=== PATIENT | male | born 1940 | race Caucasian/White ===

== ENCOUNTER 2021-10-26 12:52 | Emergency (ER) | payer MEDICARE, SELFPAY ==
[2021-10-26 12:58] VITALS: BP 168/99; PULSE 74; RESP 16; TEMP 36.5; O2SAT 99
--- NOTE | 2021-10-26 13:19 | ED.EYEPROB ---
HPI - Eye Problem General Chief complaint: Eye Problems Stated complaint: EYE REDNESS Time Seen by Provider: 10/26/21 13:16 Source: patient Mode of arrival: ambulatory Limitations: no limitations History of Present Illness HPI Narrative: Patient presents today with redness to his left eye x2 days. Denies injury, trauma, foreign body sensation, vision changes. States he has been coughing and sneezing recently. Denies any aspirin or blood thinner use. Related Data Home Medications Medication Instructions Recorded Confirmed ferrous sulfate 325 mg (65 mg 325 mg PO DAILY 07/28/21 07/28/21 iron) tablet ferrous sulfate 325 mg (65 mg 325 mg PO DAILY 07/28/21 07/28/21 iron) tablet ibuprofen 200 mg capsule 200 mg PO .QD 07/28/21 07/28/21 multivitamin 1 tablet PO DAILY 07/28/21 07/28/21 Allergies Allergy/AdvReac Type Severity Reaction Status Date / Time No Known Allergies Allergy Verified 07/28/21 08:59 Review of Systems Review of Systems: CONSTITUTIONAL: Denies body aches, fever, chills, or sweats. EYES: Denies visual changes, redness, or discharge.+ Left eye redness ENT: Denies rhinorrhea, congestion, sore throat, or otalgia. CARDIOVASCULAR: Denies chest pain, palpitations, or edema. RESPIRATORY: Denies cough or dyspnea. GASTROINTESTINAL: Denies abdominal pain, nausea, vomiting, or diarrhea. GENITOURINARY: Denies dysuria or hematuria. SKIN: Denies rash, itching, or wounds. MUSCULOSKELETAL: Denies back pain, joint pain, or myalgia. NEUROLOGIC: Denies headache, numbness, tingling, or weakness. PSYCH: Denies depression or anxiety. [facility] Past Medical History Medical History Hypertension Pure hypercholesterolemia, unspecified Surgical History Surgical History History of right inguinal hernia repair Hx of left knee surgery Family History Family History Father Acute myocardial infarction Heart disease Mother Breast cancer Other Colon polyp Hypertension Social History Social History Smoking status: Never smoker Second hand tobacco smoke exposure: No Alcohol intake: current Drinks per week: 7 Substance use: never Substance use type: does not use Gender identity (if verbalized by the patient): Male Sexual Orientation (if Verbalized by the Patient): Straight or Heterosexual Spiritual care concerns: No Agree to blood products: Yes Comments At time of signature, I have reviewed and agree with nursing past medical, surgical, social and family history unless otherwise noted. Please see nursing chart for further information. There is no relevant family history pertinent to the presenting complaint Exam Narrative: GENERAL: Well-appearing, well-nourished, and in no acute distress. HEAD: Normocephalic, atraumatic. EYES: EOMI. PERRL. Left eye: Subconjunctival hemorrhage taking out most of the surface of the conjunctiva. ENT: Mucous membranes pink and moist. NECK: Normal AROM. CHEST: No respiratory distress. EXTREMITIES: Normal range of motion. No edema. SKIN: Warm, dry, no rash. Capillary refill normal. Normal skin turgor. NEURO: No focal deficits. Alert and oriented x3. Gait steady. PSYCH: Normal affect. No signs of depression or anxiety. Course Course Level of Care: Express Care Visit Vital Signs Vital signs: Vital Signs Temperature 97.7 F 10/26/21 12:58 Pulse Rate 74 10/26/21 12:58 Respiratory Rate 16 10/26/21 12:58 Blood Pressure 168/99 H 10/26/21 12:58 Pulse Oximetry 99 10/26/21 12:58 Temperature 97.7 F 10/26/21 12:58 Pulse Rate 74 10/26/21 12:58 Respiratory Rate 16 10/26/21 12:58 Blood Pressure 168/99 H 10/26/21 12:58 Pulse Oximetry 99 10/26/21 12:58 Reviewed. Pt has been inst
== END 2021-10-26 13:26 | disposition home or self-care (01) ==
PROVIDERS: Emergency Provider Nurse Practitioner; PCP Family Medicine Adolescent Medicine
DX: H11.32 Conjunctival hemorrhage, left eye (principal); I10 Essential (primary) hypertension; E78.00 Pure hypercholesterolemia, unspecified
CPT/HCPCS: 99212; G0463

== ENCOUNTER 2024-07-04 09:54 | Emergency (ER) | payer MEDICARE, SELFPAY ==
[2024-07-04 09:54] VITALS: PULSE 126; RESP 36
--- NOTE | 2024-07-04 10:13 | ED_ITS ---
HPI - General Adult General Chief complaint: Cardiac Arrest/CPR Stated complaint: cardiac arrest Time Seen by Provider: 07/04/24 10:02 History of Present Illness HPI narrative: Patient is an 84-year-old male who presents the ER in cardiac arrest. [place] when he was feeling short of breath and stated he need to stop and rest. He then collapsed. Bystander CPR started. EMS arrived and continued CPR and started ACLS protocol. Patient has been in [place] for the entirety of the resuscitation. He does have an i-gel in place. Related Data Home Medications ?Medication ?Instructions ?Recorded ?Confirmed ?Last Taken ?Type ibuprofen 200 mg capsule 200 mg PO .QD 07/28/21 02/04/24 Unknown History multivitamin 1 tablet PO DAILY 07/28/21 02/04/24 Unknown History gabapentin 300 mg capsule 300 mg PO DAILY 07/17/23 02/04/24 Unknown History Allergies Allergy/AdvReac Type Severity Reaction Status Date / Time No Known Allergies Allergy Verified 02/04/24 10:52 Review of Systems Review of Systems: ROS unobtainable: Yes unobtainable due to medical condition [facility] Past Medical History Medical History Hypertension Pure hypercholesterolemia, unspecified Surgical History Surgical History History of right inguinal hernia repair Hx of left knee surgery Family History Family History Father Acute myocardial infarction Heart disease Mother Breast cancer Other Colon polyp Hypertension Social History Social History (Updated 07/17/23 @ 09:16 by Bull Kang [facility]) Smoking status: Never smoker Second hand tobacco smoke exposure: No Alcohol intake: current Drinks per week: 7 Substance use: never Substance use type: does not use Do You Feel Safe in your Home?: Yes Lack of Transportation: No Lack of Food: Never True Current Housing: I Have Housing Concerned About Future Housing: No Difficulty Paying Gas/Electric Bills: No Difficulty Paying for Meds: No Currently Unemployed: No Education: Master's Degree or Higher Difficulty w/ Childcare or Family Care: No Living arrangements: with family Occupation/Education: retired Gender identity (if verbalized by the patient): Male Sexual Orientation (if Verbalized by the Patient): Straight or Heterosexual Spiritual care concerns: No Agree to blood products: Yes Exam Narrative: GENERAL: Unresponsive, well-nourished. HEAD: Normocephalic, atraumatic. EYES: Pupils fixed and mid dilated. ENT: Mucous membranes moist. CHEST: No spontaneous respirations. Clear with bagging. HEART: Pulseless. ABDOMEN: Soft, nondistended. EXTREMITIES: No deformity, no edema. SKIN: Warm, dry, no rash. NEURO: GCS 3, no gag. Course Course Emergency Course: 1010: The patient's daughter has arrived. I have spoken with her in the family room. Patient has received continuous CPR and has been intubated. Multiple rounds of epinephrine. He has received IV dextrose 50% for his blood sugar of 70. He also received IV sodium bicarb. With each pulse check patient was in pulseless electrical activity bedside ultrasound showed no cardiac activity. With daughter at the bedside patient was pronounced as having . 1014: Discussed with his PCP, Dr. Sanchez. He will fill out the certificate. Patient had approximately 45 minutes of CPR. Vital Signs Vital signs: Vital Signs Pulse Rate 126 H 07/04/24 09:54 Respiratory Rate 36 H 07/04/24 09:54 Pulse Rate 126 H 07/04/24 09:54 Respiratory Rate 36 H 07/04/24 09:54 Oxygen Delivery Bag Valve Mask 07/04/24 10:15 Medical Decision Making Vital Signs Vital Signs: Vital Signs Pulse Rate 126 H 07/04/24 09:54 Respiratory Rate 36 H 07/04/24 09:54 Pulse Rate 126 H 07/04/24 09:54 Respiratory Rate 36 H 07/04/24 09:54 Oxygen Delivery Bag Valve Mask 07/04/24 10:15 Discharge Plan Discharge Clinical Impression: Cardiac arrest Patient Disposition: Condition: Patient Language: Romanian Prescriptions: No Action gabapentin 300 mg capsule 300 mg PO DAILY ibuprofen 200 mg capsule 200 mg PO .QD multivitamin Tablet 1 tablet PO DAILY atorvastatin 20 mg tablet 20 mg PO DAILY Qty: 90 3RF lisinopril 20 mg tablet 20 mg PO DAILY Qty: 90 2RF Follow-up/Referrals: Everardo Nunes MD [Primary Care Provider] -
--- OUTSIDE RECORDS SUMMARY | 2024-07-04 10:40 | XMS_ITS | Referral Summary ---
Author Organization [facility] [place] [address] Address [address] [place] [id number] Care Team Providers Care Search And Rescue Officer Name Role Phone Everardo Nunes MD Primary Care Prov ider Allergies No known active allergies Medications atorvastatin (LIPITOR) 20 mg tablet Take 1 tablet (20 mg total) by mouth daily 06/07/2022 Active gabapentin (NEURONTIN) 300 mg capsule TAKE ONE CAPSULE BY MOUTH EVERY NIGHT 06/07/2022 Active lisinopriL (PRINIVIL,ZESTR IL) 20 mg tablet Take 1 tablet (20 mg total) by mouth daily 06/28/2022 Active cyclobenzaprine (FLEXERIL) 10 mg tablet Take 1 tablet (10 mg total) by mouth 3 (three) times a day as needed for muscle spasms 20 tablet 08/11/2022 Active methylPREDNISol one (MEDROL DOSEPACK) 4 mg Dosepack Take as directed on package 1 packet 08/11/2022 Active azithromycin (ZITHROMAX) 250 mg tablet Take 2 tabs (500 mg) by mouth today, than 1 tab (250 mg) daily for 4 days. 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 Gender Identity Not on file Sexual Orientation Not on file Last Filed Vital Signs Vital Sign Reading Time Taken Comments Blood Pressure 140/90 08/11/2022 9:52 AM CDT Pulse 73 08/11/2022 9:52 AM CDT Temperature 36.6 C (97.9 F) 08/11/2022 9:52 AM CDT Respiratory Rate 18 08/11/2022 9:52 AM CDT Oxygen Saturation 95% 08/11/2022 9:52 AM CDT Inhaled Oxygen Concentration - - Weight 74.8 kg (165 lb) 08/11/2022 9:52 AM CDT Height 172.7 cm (5' 8 ) 08/11/2022 9:52 AM CDT Body Mass Index 25.09 08/11/2022 9:52 AM CDT Plan of Treatment Not on file Insurance MEDICARE MEDICARE Care Teams Search And Rescue Officer Relationship Specialty Start Date End Date Everardo Nunes MD [address] [place] [address] PCP - General Family Medicine 08/11/22
--- OUTSIDE RECORDS SUMMARY | 2024-07-04 10:40 | XMS_ITS | Clinical Summary ---
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 Gender Identity Not on file Sexual Orientation Not on file Obstetrics History Last Filed Vital Signs Vital Sign Reading [...] 08/11/2022 9:52 AM CDT Plan of Treatment Health Maintenance Due Date Last Done Comments Depression Screening 1940 Fall Risk Assessment 1940 DTaP/Tdap/Td Vaccine (1 - Tdap) 1952 Hepatitis B Screening 1959 Well Visit 65+ 2006 Zoster Vaccine (2 of 3) 06/11/2013 04/16/2013 Covid-19 Vaccine (6 2023-2 5 season) 2024 02/27/2022, 09/01/2021, 03/07/2021, Additional history exists Influenza Vaccine (#1) 2024 , 02/25/2021, 01/26/2020, Additional history exists Pneumococcal vaccine 65+ Completed 03/07/2021, 02/12 Insurance [facility] MEDICARE [facility] MEDICARE Address: [facility] [id number] [place] [phone] [employer] MEDICARE Care Teams Fitter Hand Relationship Specialty Start Date End Date Everardo Nunes MD [address] [place] [address] PCP - General Family Medicine 08/11/22
== END 2024-07-04 11:37 | disposition expired ==
PROVIDERS: Emergency Provider Emergency Medicine; PCP Family Medicine Adolescent Medicine
DX: I46.9 Cardiac arrest, cause unspecified (principal); I10 Essential (primary) hypertension; E78.00 Pure hypercholesterolemia, unspecified; Z79.899 Other long term (current) drug therapy
CPT/HCPCS: 92950; 96374; 96375; 99284; J0171; J0461